=== PATIENT | female | born 1970 | race American Indian/Alaskan Native ===

== ENCOUNTER 2021-02-25 14:25 | Outpatient (CLI) | payer OTHER ==
--- NOTE | 2021-02-26 12:10 | Mammography Report ---
DIGITAL SCREENING MAMMOGRAM WITH CAD, 02/25/2021 CLINICAL INFORMATION / INDICATION: Routine screening mammography. SCREENING MAMMOGRAM TECHNIQUE: Digital bilateral 2D mammography was obtained in the craniocaudal and mediolateral obliqu e projections. This examination was interpreted with the benefit of Computer-Aided Detection analysis . COMPARISON: 03/18/15. FINDINGS: Breast Density: There are scattered areas of fibroglandular density. No dominant mass, suspicious calcifications, or architectural distortion in the right breast. There is a 7 mm ovoid circumscribed nodule in the left lower breast posteriorly, just lateral to the central axis on the cc view. The nodule is located approximately 2 cm inferior to the nipple at the 5 :30 to 6:00 position. There is a possible tiny fatty hilus on the MLO view. IMPRESSION: New small nodule in the left inferior breast posteriorly may represent an intramammary ly mph node. Left breast ultrasound is recommended for initial evaluation. Spot compression views could be performed if necessary. Follow up recommendation: Ultrasound BI-RADS Category 0: INCOMPLETE. Needs additional imaging evaluation and/or prior mammograms for jeni frost. A "normal" or negative report should not discourage follow up or biopsy of a clinically significant f inding. A written summary of these findings will be mailed to the patient. The patient will be entered into a mammography reporting system which will generate a reminder letter for the patient's next appointmen t at the appropriate interval. The [employer] recommends yearly mammograms starting at age 40 and continuing as l thompson as a woman is in good health. Breast MRI is recommended for women with an approximate 20-25% or greater lifetime risk of breast cancer, including women with a strong family history of breast or ova mary cancer or who have been treated for Hodgkin's disease. Signer Name: Naresh Garza MD Signed: 02/26/2021 12:06 PM Workstation Name: [email or web address]
== END 2021-02-25 14:26 | disposition home or self-care (01) ==
LOC: MAMMO 14:25
PROVIDERS: ATTEND Obstetrics & Gynecology
DX: Z12.31 Encounter for screening mammogram for malignant neoplasm of breast (principal); N63.23 Unspecified lump in the left breast, lower outer quadrant
CPT/HCPCS: 77067

== ENCOUNTER 2021-04-27 12:29 | Outpatient (CLI) | payer OTHER ==
--- NOTE | 2021-04-27 13:36 | Ultrasound Report ---
ULTRASOUND BREAST LEFT LIMITED, 04/27/2021 CLINICAL INFORMATION / INDICATION: ABNORMAL MAMMOGRAM. Patient presents as a callback from screening mammogram for further evaluation of a nodular density in the left breast. TECHNIQUE: Targeted ultrasound evaluation was performed of the area of interest. COMPARISON: Prior mammogram 02/25/2021 FINDINGS: Corresponding with the nodular density seen on recent mammogram, there is a 6 mm benign cyst seen in the left breast 5:00 position located 3 cm from the nipple. No suspicious sonographic abnormality varun ntified. IMPRESSION: 1. A benign cyst accounts for the recent mammographic finding. No suspicious sonographic abnormality identified. Follow up recommendation: Routine yearly BI-RADS Category 2: BENIGN. A normal or "negative" report should not preclude biopsy or follow-up of a clinically suspicious find ing. Signer Name: Yris Harrison MD Signed: 04/27/2021 1:32 PM Workstation Name: [email or web address]
== END 2021-04-27 12:30 | disposition home or self-care (01) ==
LOC: US 12:29
PROVIDERS: ATTEND Obstetrics & Gynecology
DX: N60.02 Solitary cyst of left breast (principal)